=== PATIENT | female | born 1940 ===

== ENCOUNTER 2021-01-30 05:32 | Day surgery (SDC) | payer OTHER ==
[~2021-01-30 05:32] MED LIST: AVAPRO75 MG PO; BUMETANIDE0.5 MG PO; CAMBIA50 MG PO; FLUTICASONE-SA1 EAC5; METFORMIN HCL500 M3 PO; SINGULAIR 10MG10 MG PO
[2021-01-30] MEDS ORDERED: MACROBID 100 M100 MG PO (09:30)
[2021-01-30] MEDS ORDERED: ULTRACET PO (09:30)
== END 2021-01-30 13:10 | disposition home or self-care (01) ==
LOC: CIR.AMB 05:32
PROVIDERS: ATTEND Obstetrics & Gynecology Gynecology
DX: N81.3 Complete uterovaginal prolapse (principal); Z20.822 Contact with and (suspected) exposure to COVID-19